=== PATIENT | female | born 1995 | race Caucasian/White ===

== ENCOUNTER 2016-12-01 08:10 | Emergency (ER) | payer OTHER ==
[~2016-12-01] VITALS: Ht 160 cm; Wt 66.1 kg
[~2016-12-01 08:10] MED LIST: APIDRA100 UNIT/1 SC; CHLORASEPTIC177 ML MM; EMEND1 EACH PO; LIPITOR10 MG PO; MOTRIN800 MG PO; MULTI-DAY VITA1 EACH PO; NAPROSYN250 MG PO; NAPROSYN500 MG PO; PROVENTIL,2.5 MG/3 M IH; SPRINTEC1 EACH PO; SYNTHROID75 MCG PO
[2016-12-01 08:16] VITALS: BP 125/77
== END 2016-12-01 08:48 | disposition left against medical advice (07) ==
LOC: EME 08:10
DX: O99.89 Other specified diseases and conditions complicating pregnancy, childbirth and the puerperium (principal); R10.32 Left lower quadrant pain; Z3A.19 19 weeks gestation of pregnancy; Z53.21 Procedure and treatment not carried out due to patient leaving prior to being seen by health care provider

== ENCOUNTER 2017-03-26 17:25 | Outpatient (CLI) | payer OTHER ==
[~2017-03-26] VITALS: Ht 152.4 cm; Wt 79.4 kg
[2017-03-26 17:44] VITALS: BP 151/102
[2017-03-26 18:07] LABS: EOSINOPHIL (%) 0.2 % (0-5); HEMATOCRIT 29.6 % (36.0-46.0); IMMATURE GRANULOCYTE (%) 0.7 % (0.0-0.7); IMMATURE GRANULOCYTE COUNT 0.1 K/uL; INSTRUMENT ABS NEUTROPHIL CT 9.8 K/uL; LYMPHOCYTE COUNT 1.7 K/uL (1.0-2.8); MCH 26.2 PG (29.0-34.0); MCHC 34.1 G/DL (30.0-36.0); MCV 76.9 FL (83-99); MONOCYTE (%) 4.9 % (3-12); MONOCYTE COUNT 0.6 K/uL (0-0.8); NEUTROPHIL (%) 80.3 % (45-76); NEUTROPHIL COUNT 9.8 K/uL (1.8-6.4); PLATELET COUNT 152 K/uL (156-360); RBC DIS.WIDTH-CV 13.4 % (11.8-14.6); RBC DIS.WIDTH-SD 37.2 % (39-53); RED BLOOD COUNT 3.85 M/uL (3.80-5.20); WHITE BLOOD COUNT 12.2 K/uL (4.1-10.2)
[2017-03-26 18:08] VITALS: BP 140/87
[2017-03-26 18:13] LABS: ADD MIUA? NO; BILIRUBIN NEGATIVE; BLOOD NEGATIVE; COLOR YELLOW ((YELLOW)); GLUCOSE (STRIP) NEGATIVE; KETONES NEGATIVE; LEUKOCYTES NEGATIVE; NITRITE NEGATIVE; PROTEIN (STRIP) NEGATIVE; SPECIFIC GRAVITY 1.005 (1.000-1.030); UCUL ADDED? NO; UROBILINOGEN 0.2 MG/DL (0.2-1.0)
[2017-03-26 18:23] LABS: ALKALINE PHOSPHATASE 129 IU/L (3-129); ANION GAP 10 MEQ/L (2-14); CHLORIDE 107 MEQ/L (99-109); GFR ESTIMATE (CALCULATED) > 59 mL/min/; SAMPLE HEMOLYSIS CHECK 0; SAMPLE ICTERIC CHECK 0; SAMPLE LIPEMIA CHECK 0; SODIUM 136 MEQ/L (136-147); TOTAL BILIRUBIN 0.4 MG/DL (0.0-1.0); UREA NITROGEN (BUN) 4 mg/dL (9-23)
[2017-03-26] MEDS ORDERED: PRENATAL TABLE1 EAC3 PO (18:25)
[2017-03-26 18:26] LABS: GLUCOSE 141 mg/dL (70-99)
[2017-03-26] MEDS ORDERED: FERROUS SULFAT325 MG PO (18:26)
[2017-03-26] MEDS ORDERED: VITAMIN C500 M1 PO (18:26)
[2017-03-26] MEDS ORDERED: MAGNESIUM250 MG PO (18:27)
[2017-03-26] MEDS ORDERED: MINIMED RESERV1 EAC1 MC (18:31)
[2017-03-26] MEDS ORDERED: MORGIDOX100 MG PO (18:36)
[2017-03-26] MEDS ORDERED: MONDOXYNE NL100 MG PO (18:36)
[2017-03-26] MEDS ORDERED: K-TAB ER8 MEQ PO (18:37)
[2017-03-26 18:38] VITALS: BP 123/76
[2017-03-26] MEDS ORDERED: HUMALOG100 UNIT/1 SCCONT (18:45)
[2017-03-26 19:52] LABS: LACTATE DEHYDROGENASE 164 IU/L (20-246)
[2017-03-26 19:52] LABS: UR CREATININE CONCENTRATION 45.2 MG/DL
[2017-03-26 20:15] LABS: POINT-OF-CARE METER ID UU13113801
[2017-03-26 20:26] VITALS: BP 136/84
[2017-03-26 22:57] LABS: POINT-OF-CARE METER ID UU13113801
[2017-03-26 23:06] VITALS: BP 139/91
[2017-03-26 23:30] VITALS: BP 131/86
== END 2017-03-26 23:45 | disposition home or self-care (01) ==
LOC: LDRP-OP 17:25 → 2WEST 17:26 → LDRP-OP 05-30 16:14
PROVIDERS: Advanced Practice Midwife; Obstetrics & Gynecology Obstetrics
DX: O26.893 Other specified pregnancy related conditions, third trimester (principal); R03.0 Elevated blood-pressure reading, without diagnosis of hypertension; Z3A.35 35 weeks gestation of pregnancy
CPT/HCPCS: 59025; 76818; 80053; 81003; 82570; 82948; 83615; 84156; 84550; 85025; G0378; J3480; J7030

== ENCOUNTER 2017-03-31 13:56 | Outpatient (CLI) | payer OTHER ==
[2017-03-31] VITALS (7 sets, daily range): BP systolic 127–146; BP diastolic 83–94
[~2017-03-31 13:56] MED LIST changes: +FERROUS SULFAT325 MG PO; +HUMALOG100 UNIT/1 SCCONT; +K-TAB ER8 MEQ PO; +MAGNESIUM250 MG PO; +MINIMED RESERV1 EAC1 MC; +MONDOXYNE NL100 MG PO; +MORGIDOX100 MG PO; +PRENATAL TABLE1 EAC3 PO; +VITAMIN C500 M1 PO
[2017-03-31 15:05] LABS: EOSINOPHIL (%) 0.2 % (0-5); HEMATOCRIT 28.3 % (36.0-46.0); IMMATURE GRANULOCYTE (%) 0.6 % (0.0-0.7); IMMATURE GRANULOCYTE COUNT 0.1 K/uL; INSTRUMENT ABS NEUTROPHIL CT 11.2 K/uL; LYMPHOCYTE COUNT 1.4 K/uL (1.0-2.8); MCH 26.6 PG (29.0-34.0); MCHC 34.3 G/DL (30.0-36.0); MCV 77.7 FL (83-99); MEAN PLAT.VOLUME 12.6 uM^3 (9.5-12.4); MONOCYTE (%) 4.4 % (3-12); MONOCYTE COUNT 0.6 K/uL (0-0.8); NEUTROPHIL (%) 84.2 % (45-76); NEUTROPHIL COUNT 11.2 K/uL (1.8-6.4); PLATELET COUNT 152 K/uL (156-360); RBC DIS.WIDTH-CV 13.6 % (11.8-14.6); RBC DIS.WIDTH-SD 38.7 % (39-53); RED BLOOD COUNT 3.64 M/uL (3.80-5.20); WHITE BLOOD COUNT 13.3 K/uL (4.1-10.2)
[2017-03-31 15:21] LABS: ALKALINE PHOSPHATASE 160 IU/L (3-129); ANION GAP 10 MEQ/L (2-14); CHLORIDE 107 MEQ/L (99-109); GFR ESTIMATE (CALCULATED) > 59 mL/min/; GLUCOSE 133 mg/dL (70-99); LACTATE DEHYDROGENASE 152 IU/L (20-246); POTASSIUM 3.3 MEQ/L (3.7-5.4); SAMPLE HEMOLYSIS CHECK 0; SAMPLE ICTERIC CHECK 0; SAMPLE LIPEMIA CHECK 0; SODIUM 138 MEQ/L (136-147); TOTAL BILIRUBIN 0.4 MG/DL (0.0-1.0); UREA NITROGEN (BUN) 6 mg/dL (9-23)
[2017-03-31 15:23] LABS: URIC ACID 4.4 mg/dL (3.1-9.2)
[2017-03-31 15:31] LABS: UR CREATININE CONCENTRATION 54.3 MG/DL
[2017-03-31 19:24] LABS: Estimated Average Glucose 143 mg/dL (70-123); HEMOGLOBIN A1c (GLYCOHEMOGLOB) 6.6 % HGB (Below 5.7)
== END 2017-03-31 18:30 | disposition home or self-care (01) ==
LOC: LDRP-OP 13:56 → 2WEST 13:57 → LDRP-OP 05-30 00:03
PROVIDERS: Advanced Practice Midwife
DX: O13.3 Gestational [pregnancy-induced] hypertension without significant proteinuria, third trimester (principal); Z3A.35 35 weeks gestation of pregnancy; O24.013 Pre-existing type 1 diabetes mellitus, in pregnancy, third trimester; E10.9 Type 1 diabetes mellitus without complications; Z79.4 Long term (current) use of insulin; Z96.41 Presence of insulin pump (external) (internal); O99.283 Endocrine, nutritional and metabolic diseases complicating pregnancy, third trimester; E03.9 Hypothyroidism, unspecified; O40.3XX0 Polyhydramnios, third trimester, not applicable or unspecified; E87.6 Hypokalemia; E78.5 Hyperlipidemia, unspecified
CPT/HCPCS: 59025; 76818; 80053; 82570; 83036; 83615; 84156; 84550; 85025; 87081; G0378

== ENCOUNTER 2017-04-11 04:40 | Inpatient (IN) | payer OTHER ==
[2017-04-11] VITALS (8 sets, daily range): BP systolic 138–155; BP diastolic 73–92
[~2017-04-11] VITALS: Ht 154.9 cm; Wt 77.7 kg
[~2017-04-11 04:40] MED LIST changes: +FIORICET,ESG1 TABLET PO; +INSULIN PUMP SCCONT; +K-DUR20 MEQ PO
[2017-04-11] MEDS ORDERED: LO-DOSE ASPIRIN81 M2 PO (05:28)
[2017-04-11 05:51] LABS: HEMATOCRIT 30.4 % (36.0-46.0); MCH 25.6 PG (29.0-34.0); MCHC 33.6 G/DL (30.0-36.0); MCV 76.4 FL (83-99); MEAN PLAT.VOLUME 12.3 uM^3 (9.5-12.4); PLATELET COUNT 191 K/uL (156-360); RBC DIS.WIDTH-CV 13.6 % (11.8-14.6); RBC DIS.WIDTH-SD 37.9 % (39-53); RED BLOOD COUNT 3.98 M/uL (3.80-5.20); WHITE BLOOD COUNT 10.7 K/uL (4.1-10.2)
[2017-04-11 06:08] LABS: CHLORIDE 108 mEq/L (99-109); SODIUM 139 mEq/L (136-147)
[2017-04-11 06:10] LABS: GLUCOSE 151 mg/dL (70-99)
[2017-04-11 06:11] LABS: ANION GAP 14 MEQ/L (2-14)
[2017-04-11 06:12] LABS: TOTAL BILIRUBIN 0.5 mg/dL (0.0-1.0)
[2017-04-11 06:14] LABS: ALKALINE PHOSPHATASE 210 IU/L (3-129); GFR ESTIMATE (CALCULATED) > 59 mL/min/
[2017-04-11 06:15] LABS: UREA NITROGEN (BUN) 7 mg/dL (9-23)
[2017-04-11 06:17] LABS: URIC ACID 5.4 mg/dL (3.1-9.2)
[2017-04-11 06:48] LABS: UR CREATININE CONCENTRATION 41.5 MG/DL
[2017-04-11 09:51] LABS: POINT-OF-CARE METER ID UU13113675; POINT-OF-CARE USER ID 515036437
[2017-04-11 11:44] LABS: POINT-OF-CARE METER ID UU13113801; POINT-OF-CARE USER ID PUTRLG40
[2017-04-11 12:38] LABS: POINT-OF-CARE METER ID UU13113692
[2017-04-11 14:17] LABS: HEMATOCRIT 21.6 % (36.0-46.0); MCH 26.3 PG (29.0-34.0); MCHC 34.3 G/DL (30.0-36.0); MCV 76.9 FL (83-99); PLATELET COUNT 200 K/uL (156-360); RBC DIS.WIDTH-CV 13.5 % (11.8-14.6); RBC DIS.WIDTH-SD 38.2 % (39-53); RED BLOOD COUNT 2.81 M/uL (3.80-5.20); WHITE BLOOD COUNT 18.5 K/uL (4.1-10.2)
[2017-04-11 15:36] LABS: POINT-OF-CARE METER ID UU13113692; POINT-OF-CARE USER ID PUTRLG40
[2017-04-11 16:06] LABS: POINT-OF-CARE METER ID UU13113801; POINT-OF-CARE USER ID PUTRLG40
[2017-04-12] VITALS (22 sets, daily range): BP systolic 119–175; BP diastolic 75–114
[2017-04-12 02:46] LABS: POINT-OF-CARE METER ID UU13113692
[2017-04-12 02:46] LABS: POINT-OF-CARE METER ID UU13113692; POINT-OF-CARE USER ID PUTRLG40
[2017-04-12 02:46] LABS: POINT-OF-CARE METER ID UU13113692; POINT-OF-CARE USER ID PUTRLG40
[2017-04-12 02:46] LABS: POINT-OF-CARE METER ID UU13113692
[2017-04-12 05:55] LABS: POINT-OF-CARE METER ID UU13113692
[2017-04-12 05:55] LABS: POINT-OF-CARE METER ID UU13113692
[2017-04-12 07:38] LABS: ANION GAP 9 MEQ/L (2-14); CHLORIDE 106 MEQ/L (99-109); EOSINOPHIL (%) 0.1 % (0-5); GFR ESTIMATE (CALCULATED) > 59 mL/min/; GLUCOSE 42 mg/dL (70-99); HEMATOCRIT 19.7 % (36.0-46.0); IMMATURE GRANULOCYTE COUNT 0.2 K/uL; INSTRUMENT ABS NEUTROPHIL CT 12.8 K/uL; MCHC 33.5 G/DL (30.0-36.0); MCV 77.6 FL (83-99); MEAN PLAT.VOLUME 12.2 uM^3 (9.5-12.4); MONOCYTE (%) 6.3 % (3-12); NEUTROPHIL (%) 79.9 % (45-76); NEUTROPHIL COUNT 12.8 K/uL (1.8-6.4); PLATELET COUNT 187 K/uL (156-360); POTASSIUM 2.9 MEQ/L (3.7-5.4); RBC DIS.WIDTH-CV 13.7 % (11.8-14.6); RBC DIS.WIDTH-SD 38.5 % (39-53); RED BLOOD COUNT 2.54 M/uL (3.80-5.20); SAMPLE HEMOLYSIS CHECK 0; SAMPLE ICTERIC CHECK 0; SAMPLE LIPEMIA CHECK 0; SODIUM 139 MEQ/L (136-147); UREA NITROGEN (BUN) 4 mg/dL (9-23); WHITE BLOOD COUNT 16.1 K/uL (4.1-10.2)
[2017-04-12 08:07] LABS: POINT-OF-CARE METER ID UU13113801
[2017-04-12 11:07] LABS: POINT-OF-CARE METER ID UU13113692
[2017-04-12 11:59] LABS: POINT-OF-CARE METER ID UU13113692
[2017-04-12 13:58] LABS: POINT-OF-CARE METER ID UU13113801
[2017-04-12 15:20] LABS: HEMATOCRIT 22.6 % (36.0-46.0); MCH 26.6 PG (29.0-34.0); MCHC 34.1 G/DL (30.0-36.0); MCV 78.2 FL (83-99); MEAN PLAT.VOLUME 11.7 uM^3 (9.5-12.4); NRBC (%) 0.1 /100 WBC (0-0); PLATELET COUNT 171 K/uL (156-360); RBC DIS.WIDTH-CV 14.6 % (11.8-14.6); RBC DIS.WIDTH-SD 41.1 % (39-53); RED BLOOD COUNT 2.89 M/uL (3.80-5.20); WHITE BLOOD COUNT 16.4 K/uL (4.1-10.2)
[2017-04-12 15:28] LABS: CHLORIDE 108 mEq/L (99-109); SODIUM 140 mEq/L (136-147)
[2017-04-12 15:31] LABS: ANION GAP 10 MEQ/L (2-14)
[2017-04-12 15:32] LABS: GLUCOSE 129 mg/dL (70-99); POTASSIUM 3.8 mEq/L (3.7-5.4); TOTAL BILIRUBIN 0.4 mg/dL (0.0-1.0)
[2017-04-12 15:33] LABS: ALKALINE PHOSPHATASE 167 IU/L (3-129)
[2017-04-12 15:34] LABS: GFR ESTIMATE (CALCULATED) > 59 mL/min/
[2017-04-12 15:35] LABS: UREA NITROGEN (BUN) 4 mg/dL (9-23)
[2017-04-12 16:21] LABS: UR CREATININE CONCENTRATION 22.6 MG/DL
[2017-04-12 16:48] LABS: POINT-OF-CARE METER ID UU13113801
[2017-04-12 19:10] LABS: POINT-OF-CARE METER ID UU13113801
[2017-04-12 22:45] LABS: POINT-OF-CARE METER ID UU13113692
[2017-04-12 22:45] LABS: POINT-OF-CARE METER ID UU13113692
[2017-04-13] VITALS (21 sets, daily range): BP systolic 126–161; BP diastolic 72–105
[2017-04-13 06:27] LABS: POINT-OF-CARE METER ID UU13113692
[2017-04-13 06:27] LABS: POINT-OF-CARE METER ID UU13113692
[2017-04-13 06:56] LABS: EOSINOPHIL (%) 0.3 % (0-5); HEMATOCRIT 20.8 % (36.0-46.0); IMMATURE GRANULOCYTE (%) 1.8 % (0.0-0.7); IMMATURE GRANULOCYTE COUNT 0.3 K/uL; LYMPHOCYTE COUNT 1.8 K/uL (1.0-2.8); MCH 26.6 PG (29.0-34.0); MCHC 33.7 G/DL (30.0-36.0); MCV 79.1 FL (83-99); MEAN PLAT.VOLUME 11.6 uM^3 (9.5-12.4); MONOCYTE (%) 5.3 % (3-12); MONOCYTE COUNT 0.8 K/uL (0-0.8); NEUTROPHIL (%) 80.7 % (45-76); NRBC (%) 0.2 /100 WBC (0-0); PLATELET COUNT 190 K/uL (156-360); RBC DIS.WIDTH-CV 14.3 % (11.8-14.6); RBC DIS.WIDTH-SD 40.5 % (39-53); RED BLOOD COUNT 2.63 M/uL (3.80-5.20); WHITE BLOOD COUNT 14.9 K/uL (4.1-10.2)
[2017-04-13 07:55] LABS: POINT-OF-CARE METER ID UU13113692
[2017-04-13 09:17] LABS: ANION GAP 9 MEQ/L (2-14); CHLORIDE 104 MEQ/L (99-109); GFR ESTIMATE (CALCULATED) > 59 mL/min/; POTASSIUM 3.3 MEQ/L (3.7-5.4); SAMPLE HEMOLYSIS CHECK 0; SAMPLE ICTERIC CHECK 0; SAMPLE LIPEMIA CHECK 0; SODIUM 140 MEQ/L (136-147); UREA NITROGEN (BUN) 3 mg/dL (9-23)
[2017-04-13 09:22] LABS: GLUCOSE 75 mg/dL (70-99)
[2017-04-13 10:27] LABS: POINT-OF-CARE METER ID UU13113801
[2017-04-13 11:57] LABS: POINT-OF-CARE METER ID UU13113801
[2017-04-13 15:38] LABS: POINT-OF-CARE METER ID UU13113801
[2017-04-13 16:42] LABS: POINT-OF-CARE METER ID UU13113801
[2017-04-13 19:26] LABS: HEMATOCRIT 28.5 % (36.0-46.0); MCH 27.6 PG (29.0-34.0); MEAN PLAT.VOLUME 11.4 uM^3 (9.5-12.4); NRBC (%) 0.2 /100 WBC (0-0); RBC DIS.WIDTH-CV 14.8 % (11.8-14.6); WHITE BLOOD COUNT 16.3 K/uL (4.1-10.2)
[2017-04-13 19:27] LABS: PLATELET COUNT 251 K/uL (156-360); RED BLOOD COUNT 3.52 M/uL (3.80-5.20)
[2017-04-13 20:59] LABS: POINT-OF-CARE METER ID UU13113801
[2017-04-14 02:07] VITALS: BP 134/95
[2017-04-14 02:17] LABS: POINT-OF-CARE METER ID UU13113801
[2017-04-14 06:01] LABS: POINT-OF-CARE METER ID UU13113801
[2017-04-14 08:17] LABS: POINT-OF-CARE METER ID UU13113801
[2017-04-14] MEDS ORDERED: IBUPROFEN800 MG PO (10:08)
[2017-04-14] MEDS ORDERED: Procardia XL,Adalat PO (10:08)
[2017-04-14] MEDS ORDERED: ENDOCET 5-3251 EACH PO (10:08)
[2017-04-14] MEDS ORDERED: PROCARDIA XL60 MG PO (10:12)
[2017-04-14 10:15] LABS: POINT-OF-CARE METER ID UU13113801
[2017-04-14 11:18] VITALS: BP 131/94
[2017-04-14 11:31] LABS: POINT-OF-CARE METER ID UU13113801
[2017-04-14 13:21] VITALS: BP 123/80
[2017-04-14 13:54] LABS: POINT-OF-CARE METER ID UU13113801
[2017-04-14 14:43] LABS: POINT-OF-CARE METER ID UU13113801
[2017-04-14 15:21] VITALS: BP 138/87
[2017-04-17 12:23] LABS: POINT-OF-CARE METER ID UU13113801
== END 2017-04-14 15:58 | disposition left against medical advice (07) | DRG 765 ==
LOC: 2WEST 04:40 → 2SOUTH 08:31 → 2WEST 04-14 15:58
PROVIDERS: Obstetrics & Gynecology
DX: O36.63X0 Maternal care for excessive fetal growth, third trimester, not applicable or unspecified (principal); O24.02 Pre-existing type 1 diabetes mellitus, in childbirth; E10.65 Type 1 diabetes mellitus with hyperglycemia; O99.02 Anemia complicating childbirth; D62 Acute posthemorrhagic anemia; D50.9 Iron deficiency anemia, unspecified; Z30.2 Encounter for sterilization; O14.14 Severe pre-eclampsia complicating childbirth; O99.284 Endocrine, nutritional and metabolic diseases complicating childbirth; E03.9 Hypothyroidism, unspecified; E87.6 Hypokalemia; O40.3XX0 Polyhydramnios, third trimester, not applicable or unspecified; O75.4 Other complications of obstetric surgery and procedures; R00.0 Tachycardia, unspecified; Z3A.37 37 weeks gestation of pregnancy; Z37.0 Single live birth; Z96.41 Presence of insulin pump (external) (internal); Z79.4 Long term (current) use of insulin
CPT/HCPCS: 80048; 80053; 82570; 82948; 82955 90; 83605; 83735; 84156; 84439; 84443; 84550; 85025; 85027; 86900; 86901; 86920; 88302; J0690; J1885; J2274; J2405; J3010; J3475; J7040; J7120; P9016